=== PATIENT | female | born 1965 | race Hispanic/Latino ===

== ENCOUNTER → 2024-05-21 | Outpatient (CLI) | payer OTHER ==
--- NOTE | 2024-05-21 10:15 | HMCIMG ---
MR SPINAL CANAL, LUMBAR WO CON HISTORY: Back pain COMPARISON: None TECHNIQUE: MRI of the lumbar spine was performed utilizing multiple pulse sequences in axial , coronal and sagittal plane. Patient was not given contrast through intravenous route. FINDINGS: No abnormal signal intensity is seen of the visualized bony structure. No loss of vertebral height is seen. There is straightening of normal lumbar curvature which may be related to muscle spasm or positioning. Degenerative disc signals are present at L3-4, L4-5 and L5-S1 levels. Visualized distal conus is unremarkable. At the L3-4 level, there is spondylotic disc with bilateral ligamentum flavum hypertrophy causing anterior thecal sac compression with bilateral lateral recess stenosis without associated neural foraminal stenosis. The thecal sac measures approximately 7.6 mm in its anterior posterior dimension. At the L4-5 level, there is spondylotic disc with central disc protrusion and bilateral ligamentum flavum hypertrophy causing anterior thecal sac compression with bilateral lateral recess stenosis without associated neural foraminal stenosis. The thecal sac measures approximately 5.3 mm in its anterior posterior dimension. At the L5-S1 level, there is spondylotic disc causing anterior thecal sac compression with bilateral lateral recess stenosis and mild bilateral neural foraminal stenosis. The thecal sac measures approximately 4.3 mm in its anterior posterior dimension. IMPRESSION: 1. DJD with mild lumbar spine spondylosis worse at L5-S1 level.
--- NOTE | 2024-05-21 10:21 | HMCIMG ---
MR SPINAL CANAL, THORAC WO CON HISTORY: Back pain COMPARISON: None TECHNIQUE: MRI of the thoracic spine was performed utilizing multiple pulse sequences in axial, coronal and sagittal plane. Patient was not given contrast through intravenous route. FINDINGS: No abnormal signal intensity is seen of the visualized bony structure. No loss of vertebral height is seen. Degenerative disc signals are present at all thoracic spine levels. The thoracic cord is of normal signal intensity without cord compression or impingement. There are degenerative changes with thoracic spine spondylosis. No focal disc herniation or neural foraminal stenosis is seen. IMPRESSION: 1. DJD with spondylosis. No focal disc herniation or neuroforaminal stenosis is seen.
--- NOTE | 2024-05-21 10:24 | HMCIMG ---
MR SPINAL CANAL, CERV WO CON HISTORY: Back pain COMPARISON: None TECHNIQUE: MRI of the cervical spine was performed utilizing multiple pulse sequences in axial and sagittal plane. Patient was not given contrast through intravenous route. FINDINGS: No abnormal signal intensity is seen of the visualized bony structure. No loss of vertebral height is seen. There is straightening of normal lordotic cervical curvature which may be related to muscle spasm or positioning. Degenerative disc signals are present at C4-5, C5-6 and C6-7 levels. Cerebellar tonsils are in normal position. The cervical cord is of normal signal intensity without cord compression or impingement. At the C4-5 level, there is spondylotic disc causing anterior CSF space effacement with bilateral lateral recess stenosis and bilateral neural foraminal stenosis. The central canal measures approximately 5.3 mm in its anterior posterior dimension. At the C5-6 level, there is spondylotic disc causing anterior CSF space effacement with bilateral lateral recess stenosis and bilateral neural foraminal stenosis. The central canal measures approximately 8.4 mm in its anterior posterior dimension. At the C6-7 level, there is spondylotic disc causing anterior CSF space effacement with bilateral lateral recess stenosis and bilateral neural foraminal stenosis. The central canal measures approximately 5.3 mm in its anterior posterior dimension. IMPRESSION: 1. DJD with cervical spine spondylosis and central canal narrowing predominantly involving the C4-5, C5-6 and C6-7 levels.
== END | disposition home or self-care (01) ==
LOC: RAH 07:45
PROVIDERS: ATTEND Internal Medicine
DX: M47.812 Spondylosis without myelopathy or radiculopathy, cervical region (principal); M47.814 Spondylosis without myelopathy or radiculopathy, thoracic region; M47.817 Spondylosis without myelopathy or radiculopathy, lumbosacral region; M48.02 Spinal stenosis, cervical region; M48.07 Spinal stenosis, lumbosacral region; M54.9 Dorsalgia, unspecified; M51.26 Other intervertebral disc displacement, lumbar region; M54.2 Cervicalgia
CPT/HCPCS: 72141; 72146; 72148